=== PATIENT | male | born 1945 | race Caucasian/White ===

== ENCOUNTER 2016-11-09 23:18 | Inpatient (IN) | payer MEDICARE, OTHER ==
--- NOTE | ~2016-11-09 | EKG ---
PATIENT: JELANI ESTRADA UNIT #: [id number] Ventricular Rate: 88 BPM Atrial Rate: 88 BPM P-R Interval: 146 ms QRS Duration: 122 ms Q-T Interval: 394 ms QTC Calculation(Bezet): 476 ms P [place]: 80 degrees Calculated R [place]: -78 degrees Calculated T [place]: 28 degrees Diagnosis Line: Normal sinus rhythm Diagnosis Line: Possible Left atrial enlargement Diagnosis Line: Left axis deviation Diagnosis Line: Right bundle branch block Diagnosis Line: Abnormal ECG Diagnosis Line: When compared with ECG of 14-SEP-2010 06:17, Diagnosis Line: Vent. rate has increased BY 39 BPM Diagnosis Line: Right bundle branch block is now Present Diagnosis Line: Confirmed by SRAVAN DEE MD ([id number]) on 11/10/2016 Diagnosis Line: 10:46:18 PM INTERPRETING MD: LUIZ CLOUD
--- NOTE | ~2016-11-09 | MR18 ---
[facility] A Service of [facility] RADIOLOGY TEXT RESULTS PATIENT: JELANI ESTRADA LOCATION: [facility] : 44 UNIT #: [id number] AGE: [address]: Chad Otto MD SEX: M ORDER DR: [id number] [facility] [address] [facility]. [place], [place] [address] [id number] I MR#: [id number] Acc #: [id number] NAME: JELANI ESTRADA : 1945 SEX: M STUDY DATE/TIME: 11/11/2016 10:39 UNIT: A PCU ROOM: 310 STUDY DESCRIPTION: MR Brain Wo Contrast Attending Physician: Mickey Newsome M.D. Referring Physician: Primary Care Physician No Ordering Physician: Eugenio Johns M.D. Primary Care Physician: Primary Care Physician No MRI CENTER REPORT This report is preliminary unless electronic signature is present. EXAM Brain MR no contrast 11/11/2016 PROCEDURE Routine unenhanced brain MRI. HISTORY Confusion for [address] suggesting acute stroke. PROCEDURE Routine unenhanced brain MRI. FINDINGS In addition to advanced chronic small vessel ischemic change, there is a central MCA territory acute/subacute non hemorrhagic infarct. There is restricted diffusion T2 FLAIR hyperintensity gyral swelling but no hemorrhagic conversion. There is no midline shift. There is no hydrocephalus or extraaxial fluid collection. Normal flow voids are seen in the cerebral vessels. IMPRESSION Nonhemorrhagic acute/subacute right central MCA territory infarct with local sulcal effacement. Dictated by... Abner Rae M.D. THIS IS AN ELECTRONICALLY VERIFIED REPORT Abner Rae M.D. at 11/18/2016 10:44 AM GARY/sheba TD: 11/11/2016 12:39 [facility] A Service of [facility] RADIOLOGY TEXT RESULTS PATIENT: JELANI ESTRADA LOCATION: [facility] : 44 UNIT #: [id number] AGE: [address]: Chad Otto MD SEX: M ORDER DR: JOB #: [id number] MRI CENTER REPORT Page 1 of 1 COPY
--- NOTE | ~2016-11-09 | CT17 ---
[facility] A Service of [facility] RADIOLOGY TEXT RESULTS PATIENT: JELANI ESTRADA LOCATION: [facility] 310-01 : 44 UNIT #: [id number] AGE: [address]: Mickey Newsome MD SEX: M ORDER DR: [id number] [facility] [address] [facility]. [place], [place] [address] [id number] I MR#: [id number] Acc #: [id number] NAME: JELANI ESTRADA : 1945 SEX: M STUDY DATE/TIME: 11/10/2016 3:37 UNIT: [facility] ROOM: 69021 STUDY DESCRIPTION: CT Angio Head Attending Physician: Mickey Newsome M.D. Referring Physician: Primary Care Physician No Ordering Physician: Germán Banda M.D. Primary Care Physician: Primary Care Physician No MEDICAL IMAGING REPORT This report is preliminary unless electronic signature is present EXAM Head and neck CT angiogram with contrast, 11/10/2016 PROCEDURE Axial contrast enhanced head and neck CT angiogram with three dimensional reformats. This CT exam was performed with one or more of the following radiation dose reduction techniques: automatic exposure control, adjustment of mA and/or kV according to patient size, and iterative reconstruction. HISTORY Loss of balance, lethargy and confusion for 2 days. FINDINGS There is a normal arch branching pattern without proximal great vessel stenosis. Both vertebral arteries are patent throughout the neck and there is right vertebral dominance. Both contribute to the basilar artery which is normal in caliber. Both cervical common and internal and external carotid arteries are patent. There is plaque at the cervical carotid bifurcations with 0% right and 20% left ICA stenosis by NASCET criteria. The upper cervical ICAs are normally patent. The carotid siphons show irregularity and there is focal at least moderate stenosis in the left clinoid ICA. The anterior communicator is clearly patent. Neither posterior communicator is unequivocally demonstrated. There may be a tiny right posterior communicator, perhaps a tiny left posterior communicator but again neither is convincingly demonstrated. There is a small superiorly directly right MCA aneurysm at what appears to be an early insular branch origin. The aneurysm is about 3.0 mm in size. [facility] A Service of [facility] RADIOLOGY TEXT RESULTS PATIENT: JELANI ESTRADA LOCATION: [facility] 310-01 : 43 UNIT #: [id number] AGE: [address]: Mickey Newsome MD SEX: M ORDER DR: There is no other convincing intracranial aneurysm, but there is stenosis at the bifurcation of the right MCA trunk to what are probably M3 branches. No other intracranial flow limiting stenosis is seen. There is an area of what appears to be evolving central MCA territory acute infarct. The dural venous sinuses appear normally patent. There is no mass or abnormal enhancement. IMPRESSION 1. There is plaque at the carotid bifurcations with about 20% left and 0% right ICA stenosis by NASCET criteria. 2. 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 3. There is also a focal stenosis and probably completely occlusive thrombus at the primary M3 branch origin on the right. 4. No other intracranial aneurysm is seen but is also at least a moderate stenosis in the left clinoid ICA segment. 5. Maturing right central MCA territory infarct is demonstrated. No intracranial mass or abnormal enhancement and the dural venous sinuses are normal. 6. The cervical soft tissues are unremarkable. There are emphysematous changes in the lung apices. Dictated by... Abner Rae M.D. THIS IS AN ELECTRONICALLY VERIFIED REPORT Abner Rae M.D. at 11/11/2016 9:50 AM GARY/balbir TD: 11/10/2016 11:55 JOB #: [id number] MEDICAL IMAGING REPORT Page 1 of 1 COPY
--- NOTE | ~2016-11-09 | DS ---
Unit #: [id number] #: [id number] Patient: JELANI ESTRADA [id number] [address] [place], [place] [address] [id number] I MR#: [id number] NAME: JELANI ESTRADA ROOM: 310 Age: 71 Sex: M Admission Date: 11/10/2016 : 1945 Discharge Date: 11/15/2016 Attending Physician: Chad Otto M.D. Primary Care Physician: No Primary Care Physician DISCHARGE SUMMARY DISCHARGE DIAGNOSES 1. Acute to subacute cerebrovascular accident with dysarthria and dysphagia. Cerebrovascular accident location is right central middle cerebral artery territory infarct with local focal effacement. 2. Transient bacteremia due to the skin contaminate per infectious disease, was transiently treated with vancomycin. Transthoracic echocardiogram with no source of infective endocarditis. 3. Mechanical valve: We cannot confirm if patient does or does not take Coumadin; however, at this time patient will be discharged without Coumadin. 4. Alcohol abuse remotely: Patient has not drank in the past year or two per his son. 5. Vitamin B12 deficiency: Likely due to his years of alcohol consumption. 6. Essential hypertension. 7. Hyperlipidemia. 8. Generalized anxiety. 9. Chronic pain syndrome. 10. Chronic obstructive pulmonary disease with an acute exacerbation. 11. Acute hypoxic respiratory failure. CONSULTANTS 1. Dr. Johns of neurology. 2. Dr. Turcios of infectious disease. 3. Dr. Whyte had performed a DEBBY (transesophageal echocardiogram). PROCEDURES DEBBY on November 13, 2016: Impression - septal hypokinesis. No PFO. No ASD. Mechanical aortic valve. Thickened valve. No clot in left atrial appendage. No vegetation. Severe atherosclerotic with grade 4 atherosclerosis. DIAGNOSTIC STUDIES LABORATORY: Patient's labs today include BMP: Glucose 168, BUN 13, creatinine 0.8, sodium 138, potassium 3.8, chloride 108, CO2 of 24, calcium 8.1. Magnesium was not done. CBC with WBC of 6.1, RBC 4.49, hemoglobin 13.2, hematocrit 39.7, MCV 88.4, MCH 29.4, MCHC 33.1, RDW 13.3, platelets 157,000, MPV 8.8. IMAGING: Chest x-ray, November 09, 2016: Impression - no acute chest findings. CABG changes. Valve replacement changes. CT head without contrast, November 10, 2016: Impression - findings consistent with evolving right middle cerebral artery territory infarct Unit #: [id number] #: [id number] Patient: JELANI ESTRADA involving the right frontal and parietal lobe. No evidence of hemorrhagic transformation or midline shift. Chronic microvascular disease changes are present elsewhere within the deep white matter. Mild to moderate generalized parenchymal atrophy. CT angio of head and neck: Impression - there is a plaque in the carotid bifurcation with about 20% left and zero percent right ICA stenosis by NASCET criteria. Intracranially, there is a both a right M1 aneurysm superiorly directed about 3 mm in size at what appears to be the origin of an early small insular branch. There is also a focal stenosis and probably completely occlusive thrombus at the primary M3 branch origin on the right. No other intracranial aneurysm is seen but is also at least a moderate stenosis in the left clinoid ICA segment. Maturing right central MCA territory infarct is demonstrated. No intracranial mass or abnormal enhancement and the dural venous sinuses are normal. The cervical soft tissues are unremarkable. There are emphysematous changes in the lung apices. MRI of the brain without contrast on November 11, 2016: Impression - nonhemorrhagic acute to subacute right central MCA territory infarct with local focal effacement. A two-view chest x-ray on November 14, 2016: Impression - mild bibasilar atelectasis/infiltrate, left greater than right, early pneumonia not excluded in the appropriate clinical settings. MICROBIOLOGY: Blood culture has Staphylococcus coagulase negative x2. Urine culture has no growth. HOSPITAL COURSE The patient is a pleasant 71-year-old male with past medical history of remote severe alcoholism, essential hypertension, mechanical valve repair, coronary artery disease, hyperlipidemia, generalized anxiety, chronic pain who presents to the emergency department due to chest pain, confusion. Patient has had profound weakness as well as generalized dizziness for approximately seven days. He was disoriented. Had several cognitive episodes. He was unsure where he was, the time of the day, and to any persons. Therefore, he was brought to the emergency department for further evaluation. The patient does have a mechanical aortic valve and history of alcohol abuse. He is supposed to be on home Coumadin but cannot tell me a dose. When nursing called [facility], where he gets his prescriptions, they state that his home meds include: Xanax, oxycodone, Paxil, pravastatin but no anticoagulant was listed. (1) emergency department had concern for possibly a subacute MCA. Dr. Johns was consulted for stroke workup. He did have a 2D echo that revealed left ventricular size is normal. Left ventricular hypertrophy. Global ejection fraction was normal, predicted to be at 65%. No regional wall motion abnormalities. No diastolic filling pattern. Normal diastolic filling pattern with age. Normal right ventricular structure and function. Mechanical aortic valve prosthesis is in place, well seated. Blood culture was obtained with concern for altered mental status in patient with mechanical valve. It did result in 2/2 sets with Staphylococcus coag negative and patient was transiently treated with vancomycin. Infectious disease with Dr. Turcois was consulted who felt that it was likely skin contaminate. Therefore, no further antibiotics were needed at this time. For his complete CVA workup, speech therapy evaluated the patient and patient had failed bedside swallow study. Therefore, a video-assisted swallow study was performed, a modified Unit #: [id number] #: [id number] Patient: JELANI ESTRADA swallow study which thought that patient had overt signs of dysphagia. He also had food in his mouth which he did not swallow. It was recommended that patient have a slick diet with honey-thickened and be supervised during his meals. Spoken to the patient about this at extensive length that he would need one-on-one sitter and then he would benefit from going to a long-term assisted living facility to assist with that as he does have likely severe esophageal dysphagia due to his longstanding alcoholism and now worsened with his acute CVA. The patient tells me that he "does not want to go to old folks home." Therefore, I have also brought up the topic of having feeding through a PEG tube while patient gets assisted with speech therapy and that his symptoms may or may not improve over time. The patient again voiced that he would never ever want a PEG tube to be placed for feeding. I have spoken with both patient, Mr. Omari Estrada, as well as, his son, also Jelani Estrada. They both agreed that it was in the patient's best interest that he be discharged home with hospice as he would not want for any of these measures to be taken. Specifically with regard to patient's transient bacteremia, patient did have a 2D echo by Dr. Larsen on November 13, 2016, and noted some septal hypokinesis but no PFO, no ASD, mechanical aortic valve with thickened valve but no clot in left atrial appendage. No vegetation. Severe atherosclerotic with grade 4 atheroma. At this time, since patient's main focus is to go home so that he could mainly see his dog and eat whatever he would like, patient will be discharged there. DISCHARGE MEDICATIONS 1. Paxil 40 mg orally daily. 2. Xanax 1 mg orally twice daily. 3. Lipitor 40 mg orally at bedtime. 4. Aspirin 81 mg orally daily. 5. Oxycodone which was not continued, instead [place] 5/325 one tablet every eight hours as needed for dipiqvqs-bu-ncaxfe pain. 6. Vitamin B12 at 1000 mcg orally daily. 7. Prednisone 40 mg orally for the next four days. 8. Combivent two puffs inhaled four times daily. ACTIVITY Nonrestricted. DIET Nonrestricted. This dictation took 45 minutes including patient education to patient and his son and to coordinate care with project planner as well as hospice team. Dictated by... Lam Neely PA-C for Trevor Newton/stephanie TD: 11/16/2016 15:09 JOB #: [id number] Unit #: [id number] #: [id number] Patient: JELANI ESTRADA DISCHARGE SUMMARY Page 1 of 1 X X DISCHARGE SUMMARY
--- NOTE | ~2016-11-09 | CR72 ---
[facility] A Service of [facility] RADIOLOGY TEXT RESULTS PATIENT: JELANI ESTRADA LOCATION: [facility] : 43 UNIT #: [id number] AGE: [address]: Mickey Newsome MD SEX: M ORDER DR: [id number] [id number] [place], [place] [address] [id number] I MR#: [id number] Acc #: [id number] NAME: JELANI ESTRADA : 1945 SEX: M STUDY DATE/TIME: 11/09/2016 23:19 UNIT: [facility] ROOM: 57601 STUDY DESCRIPTION: CR Chest Single View Portable Attending Physician: Mickey Newsome M.D. Referring Physician: No Primary Care Physician Ordering Physician: Germán Banda M.D. Primary Care Physician: No Primary Care Physician MEDICAL IMAGING REPORT This report is preliminary unless electronic signature is present EXAM AP portable chest DATE 11/09/2016 at 23:19 HISTORY Chest pain for mdi-rt-gtjnu days. Difficulty breathing. COMPARISON AP portable chest 09/13/2010. FINDINGS No acute airspace disease. Heart size is within normal limits. CABG changes are present. Benign calcified granuloma in the left hilum. No pleural effusion, pneumothorax or acute osseous abnormalities are identified. IMPRESSION 1. No acute chest findings. 2. CABG changes. Valve replacement changes. Dictated by... Christie Charles M.D. THIS IS AN ELECTRONICALLY VERIFIED REPORT Christie Charles M.D. at 11/10/2016 4:20 AM LLJack/shara TD: 11/10/2016 04:14 JOB #: [id number] MEDICAL IMAGING REPORT [facility] A Service [facility] RADIOLOGY TEXT RESULTS PATIENT: JELANI ESTRADA LOCATION: [facility] : 44 UNIT #: [id number] AGE: [address]: Mickey Newsome MD SEX: M ORDER DR: Page 1 of 1 COPY
--- NOTE | ~2016-11-09 | CR63 ---
[facility] A Service of [facility] RADIOLOGY TEXT RESULTS PATIENT: JELANI ESTRADA LOCATION: [facility] 310- : 44 UNIT #: [id number] AGE: [address]: Chad Otto MD SEX: M ORDER DR: [id number] [facility] [address]. [place], [place] [address] [id number] I MR#: [id number] Acc #: [id number] NAME: JELANI ESTRADA : 1945 SEX: M STUDY DATE/TIME: 11/14/2016 17:55 [facility] ROOM: [facility] STUDY DESCRIPTION: CR Chest 2 View Attending Physician: Chad Otto M.D. Ordering Physician: [facility] MEDICAL IMAGING REPORT This report is preliminary unless electronic signature is present EXAM Two-view chest 11/14/2016 HISTORY 71-year-old male with shortness of air and cough for 1 week. Essential hypertension. COMPARISON STUDIES Chest 11/09/2016. FINDINGS 2 views of the chest demonstrate bibasilar atelectasis/infiltrate, left greater than right. No significant pleural effusions. No pneumothorax. Heart size and mediastinum are stable. Pulmonary vasculature unremarkable. Median sternotomy wires. Cardiac valve replacement. IMPRESSION Mild bibasilar atelectasis/infiltrate, left greater than right. Early pneumonia not excluded in the appropriate clinical setting. Dictated by... Neville Newberry M.D. THIS IS AN ELECTRONICALLY VERIFIED REPORT Neville Newberry M.D. at 11/15/2016 4:27 PM HODAN/rasheed TD: 11/14/2016 23:02 JOB #: [id number] MEDICAL IMAGING REPORT Page 1 of 1 COPY
--- NOTE | ~2016-11-09 | CO ---
Unit #: [id number] #: [id number] Patient: JELANI ESTRADA [id number] [address] [address] [id number] I MR#: [id number] NAME: JELANI ESTRADA ROOM: 310 Age: 71 Sex: M Admission Date: 11/10/2016 : 1945 Attending Physician: Chad Otto M.D. Primary Care Physician: Юлия Primary Care Physician Requesting Physician: Chad Otto M.D. Consultation Date: 11/11/2016 CONSULTATION REPORT REASON FOR CONSULTATION Positive blood cultures. HISTORY OF PRESENT ILLNESS This 71-year-old gentleman who is currently somewhat confused and disoriented was initially hospitalized for what appeared to be CVA with left-sided weakness. Subsequently, blood cultures showed coag-negative staff for which vancomycin was started. ID was consulted for further evaluation. Patient does not have any fever, chills, or any signs of systemic sepsis. He does, however, have a prosthetic aortic valve and his combination of stroke, positive blood culture, and AVR may be concerning for endocarditis. However, patient does not have any fever, chills, hypertension, or any signs of systemic sepsis. PAST MEDICAL HISTORY History of alcohol abuse, coronary artery disease, coronary artery bypass grafting, aortic valve replacement, diabetes, hypertension, COPD, depression, tobacco abuse, appendectomy, and chronic pain. DRUG ALLERGIES None. MEDICATIONS Current medications were reviewed. He is on: 1. Lipitor. 2. Oxycodone. 3. Paxil. 4. Aspirin. 5. Cyanocobalamin. 6. Zofran. 7. NovoLog. 8. Xanax. 9. Vancomycin. PERSONAL HISTORY He lives at home. No history of IV drug use. There is a history of alcohol and tobacco use. FAMILY HISTORY Unknown. SYSTEMIC REVIEW Patient is somewhat confused and not a very good historian. Chart was reviewed and discussions were held with nursing staff. Pertinent findings Unit #: [id number] #: [id number] Patient: JELANI ESTRADA are listed. There is no obvious fever, hypotension, or signs of systemic sepsis. There is no cough or headache. He had confusion and left-sided weakness. There is no abdominal pain or dysuria. PHYSICAL EXAMINATION GENERAL APPEARANCE: Reveals a middle age male who looks older than his stated age. He is awake and somewhat confused and a little bit disoriented. He is not in any distress. VITAL SIGNS: Temperature 98.9 and no fever documented during this admission, heart rate 73, respirations 18, and blood pressure is 150/90. NECK: Supple. HEENT: Oral hygiene is poor. There is left-sided facial weakness. EXTREMITIES: Possible left-sided weakness of the upper extremity, as well. LUNGS: Clear to percussion and auscultation. HEART: Sounds are normal. ABDOMEN: Obese, soft, and nontender. There is no rebound or guarding. Bowel sounds are normal. NEUROLOGICAL: He is somewhat confused and a little bit disoriented with left-sided facial and left upper extremity weakness. There is no neck stiffness. DIAGNOSTIC STUDIES LABORATORY: Blood culture is positive for coag-negative Staph. Both sets were drawn at exactly the same time. He does not have any indwelling major PICC line or central line. BUN is 23, creatinine is 1.3, and electrolytes normal. Lactic acid 1.2. White count is 6, hemoglobin is 14.1, and platelets 189. Urinalysis is negative for UTI. IMAGING: Chest x-ray had no obvious infiltrate. IMPRESSION Coag-negative Staph. bacteremia. Two sets were drawn at identical time and place. This very well could be skin contaminant; however, given the aortic valve replacement and stroke, endocarditis and embolization need to be excluded. RECOMMENDATIONS We will continue with vancomycin empirically. I will ask cardiology to do a DEBBY to look at the aortic valve more closely. The plan was discussed with the primary team and neurology who both agree. Further recommendations will follow. Dictated by... Trevor Long/eliot TD: 11/15/2016 11:47 JOB #: [id number] Unit #: [id number] #: [id number] Patient: JELANI ESTRADA CONSULTATION REPORT Page 1 of 1 X Brett Turcios MD CONSULTATION REPORT
--- NOTE | ~2016-11-09 | FU ---
[facility] Nutrition Therapy DATE: 11/15/16 Patient: JEALNI ESTRADA Physician: ILANA Address: [address] [facility] Room/Bed: [address] [place] [address], Zip: [place] [address] Admit Date: 11/10/16 Date of : 44 Height: 5 3 Weight: 139 63.5 NUTRITION MONITORING/FOLLOW-UP: Reason: Call from RN (Lawrence) to provide education on slick diet before discharge today Current diet order: [place] + HTL (per [facility]) Assessment: Previous RD assessment and patient's chart reviewed. Renetta from [facility] is already gone for the day, so RD provided the education. Gave family member in room both verbal and written diet education on slick diet with HTL, also gave meal ideas, however the family member states MD instructed him to give the patient whatever he wants to eat. RD informed family member of aspiration/choking risk, however if regular texture solids/liquids are what the patient and family wants then that is their decision. Please consult RD with any further nutritional needs prior to discharge. Respectfully, Kiana Ortiz, GUERLINE, LD Food and Nutritional Services [facility] cc: client file
--- NOTE | ~2016-11-09 | CT71 ---
[facility] A Service of [facility] RADIOLOGY TEXT RESULTS PATIENT: JELANI ESTRADA LOCATION: [facility] 310-01 : 44 UNIT #: [id number] AGE: [address]: Mickey Newsome MD SEX: M ORDER DR: [id number] [place] [id number] [facility]. [place], [place] [address] [id number] MR#: [id number] Acc #: [id number] NAME: JELANI ESTRADA : 1945 SEX: M STUDY DATE/TIME: 11/10/2016 2:41 UNIT: CEDOF ROOM: 52251 STUDY DESCRIPTION: CT Head Wo Contrast Attending Physician: Mickey Newsome M.D. Referring Physician: No Primary Care Physician Ordering Physician: Germán Banda M.D. Primary Care Physician: No Primary Care Physician MEDICAL IMAGING REPORT This report is preliminary unless electronic signature is present EXAMINATION Noncontrast CT head DATE 11/10/2016 HISTORY 71-year-old male. Chest pain for 2 days. Lethargic, confusion. Off balance. Emphysema. Hypertension. COMPARISON None. TECHNIQUE This CT exam was performed with one or more of the following radiation dose reduction techniques: automatic exposure control, adjustment of mA and/or kV according to patient size, and iterative reconstruction. FINDINGS There is abnormal hypodensity within the right frontal-parietal lobe involving the cortical vasquez matter and subcortical white matter, thought to represent an evolving right MCA territory infarct. No hemorrhagic transformation is seen. Scattered hypodensities are seen within the deep white matter consistent with moderate chronic microvascular disease, greatest in the right internal and external capsules. Chronic lacunar infarcts are seen within but thought to be present within the bilateral basal ganglia. Ventricular configuration is within normal limits. There is cydg-ln-rjhvgzln parenchymal atrophy. Paranasal sinuses and mastoid air cells are clear and the calvarium is within normal limits. IMPRESSION 1. Findings consistent with evolving right middle cerebral artery territory infarct involving the right frontal and parietal lobe. No [facility] A Service [facility] RADIOLOGY TEXT RESULTS PATIENT: JELANI ESTRADA LOCATION: A 310-01 : 44 UNIT #: [id number] AGE: [address]: Mickey Newsome MD SEX: M ORDER DR: evidence of hemorrhagic transformation or midline shift. 2. Chronic microvascular disease changes are present elsewhere within the deep white matter. 3. Mild to moderate generalized parenchymal atrophy. Dictated by... Christie Charles M.D. THIS IS AN ELECTRONICALLY VERIFIED REPORT Christie Charles M.D. at 11/10/2016 10:02 PM Jack/geronimo TD: 11/10/2016 08:43 JOB #: [id number] MEDICAL IMAGING REPORT Page 1 of 1 COPY
--- NOTE | ~2016-11-09 | CT23 ---
[facility] A Service of [facility] RADIOLOGY TEXT RESULTS PATIENT: JELANI ESTRADA LOCATION: [facility] 310-01 : 44 UNIT #: [id number] AGE: [address]: Mickey Newsome MD SEX: M ORDER DR: [id number] [address] [address] [id number] I MR#: [id number] Acc #: [id number] NAME: JELANI ESTRADA : 1945 SEX: M STUDY DATE/TIME: 11/10/2016 3:37 UNIT: [employer] ROOM: [facility] STUDY DESCRIPTION: CT Angio Neck Attending Physician: Mickey Newsome M.D. Referring Physician: Primary Care Physician No Ordering Physician: Germán aBnda M.D. Primary Care Physician: Primary Care Physician No MEDICAL IMAGING REPORT This report is preliminary unless electronic signature is present EXAM CT angiogram of the neck HISTORY FINDINGS Please see CT angiogram of the head for results. Dictated by... Abner Rae M.D. THIS IS AN ELECTRONICALLY VERIFIED REPORT Abner Rae M.D. at 11/11/2016 9:50 AM Janell TD: 11/10/2016 11:56 JOB #: [id number] MEDICAL IMAGING REPORT Page 1 of 1 COPY
--- NOTE | ~2016-11-09 | CO ---
Unit #: [id number] #: [id number] Patient: JELANI ESTRADA [id number] [facility] [address] [facility]. [place], [place] [address] [id number] MR#: [id number] NAME: JELANI ESTRADA ROOM: 310 Age: 71 Sex: M Admission Date: 11/10/2016 : 1945 Attending Physician: Mickey Newsome M.D. CONSULTATION REPORT PRIMARY CARE PHYSICIAN Not known. REASON FOR CONSULTATION Abnormal CT, possible stroke, confusion. PATIENT IDENTIFICATION This is a 71-year-old, right-handed, white male, who is evaluated in room ER 14 at [facility]. SOURCE OF INFORMATION Some from the patient and some from previous records. He has been here in the past. His last visit was in 09/2010. PROBLEM LIST At that time; 1. Alcohol withdrawal. 2. Coronary artery disease, status post coronary artery bypass grafting. 3. Status post aortic valve replacement with [facility] [place] valve. 4. Type 2 diabetes mellitus. 5. Hypertension. 6. COPD. 7. Depression. 8. Tobacco abuse. 9. Appendectomy. 10. Chronic pain. Also benzodiazepine and pain medication, may be abuse and may be dependence. 11. INR is 2.4. HISTORY OF PRESENT ILLNESS This is a 71-year-old gentleman, who actually presented yesterday around 10:26 p.m. His presentation was chest pain and confusion. He was evaluated and found to have abnormal CT and also CTA. The CT showed possibility of indeterminate age infarct in the right MCA territory and possible one of the branches on the MCA could be occluded there. The issue is that we do not know when this happened. He has a little bit of left-sided facial weakness but beyond that, he came for confusion. His INR is 2.4. Look at his history and apparently some friends came to visit him and told the staff that his biggest problem is medication use that he has not been prescribed. When asked the patient just as a question, he says that he buys drugs from the street and he is referring to Xanax and oxycodone, but Unit #: [id number] #: [id number] Patient: JELANI ESTRADA he does not do it for pleasure or euphoria. He does it, because he needs for chronic pain and he really did not tell me that he had left-sided weakness. He is a smoker, and his INR is 2.4, but when I looked at his medication, Coumadin is not listed, so we really have incomplete information. He is quite confused. He thinks this is December 10. No falls or injuries known to me. No head injury or trauma or seizure. No migraine. PAST MEDICAL HISTORY As discussed above. PAST SURGICAL HISTORY As discussed above. ALLERGIES None known to me. MEDICATIONS Home medications are not known, but apparently he is on Lipitor 10 mg, oxycodone 15 mg, Paxil 40 mg, aspirin 325 mg that was probably started here, also on Xanax 1 mg. Why was his INR elevated, I am looking at the previous records. He was on Coumadin at one time. FAMILY HISTORY Heart disease. SOCIAL HISTORY Tobacco use about two packs a day and has smoked for almost 50 years now and drinks a beer on occasion, but he does use Xanax and pain medication. Previously, he was known to be a heavy alcohol user. REVIEW OF SYSTEMS Really could not be obtained, because of his confusional state. PHYSICAL EXAMINATION VITAL SIGNS: Temperature 98.5, pulse 72, respirations are 22, blood pressure 182/92. NEUROLOGIC: The patient is awake. He is alert. He says that he is in one of the [facility] facility. He thinks this is December 10. Cranial nerve examination demonstrated full hernandes of vision to confrontation. Eye movements are conjugate. I did not see any ptosis. I did not see any nystagmus. Extraocular movements are intact. Sensation on the face and scalp are normal. Strength of muscles of facial expression normal. Hearing seemed to be intact bilaterally. Tongue was midline. I could not visualize his oropharynx or uvula. Head turning was spontaneous. Motor examination demonstrated normal bulk, tone. His strength was 4+/5 on the left side and 5- on the right side. This may be a chronic issue. Sensory examination intact for soft touch and pain sensation. No Unit #: [id number] #: [id number] Patient: JELANI ESTRADA was seen. Romberg was not evaluated. Gait examination was deferred. I could not get any reflexes. Toes are mute. Coordination was slow. DIAGNOSTIC STUDIES LABORATORY RESULTS: Reviewed. IMPRESSION This is a very interesting 71-year-old gentleman, who presented with confusion. The question is there is a stroke, but what is the time course of this stroke. Also, he has a valve and he is supposed to be on Coumadin, but I do not see it on his medication, so I will do an MRI of the brain if possible. I will do other stroke workup, but the question is this is new stroke or this is drug related issue, which cannot be totally ignored either. I will await for the primary to evaluate him. I will also request them to consider this as anticoagulation issue and we will go from there. Please see my orders and I will follow up and see how things go. This gentleman wants to leave AMA and he has been requested not to do that. We will see how things automatic glove turner and former. Call me for any other questions, issues, or concerns. He is obviously not a tPA or interventional candidate as his duration was totally different. Dictated by... Trevor Bermudez/billy TD: 11/11/2016 05:06 JOB #: [id number] CONSULTATION REPORT Page 1 of 1 X Eugenio Johns MD X CONSULTATION REPORT
--- NOTE | ~2016-11-09 | HP ---
Unit #: [id number] #: [id number] Patient: JELANI ESTRADA [id number] [address] [place], [place] [address] [id number] MR#: [id number] NAME: JELANI ESTRADA ROOM: 310 Age: 71 Sex: M Admission Date: 11/10/2016 : 1945 Attending Physician: Mickey Newsome M.D. HISTORY AND PHYSICAL DATE OF EVALUATION November 10, 2016 REASON FOR ADMISSION Chest pain, confusion, possible underlying subacute CVA. HISTORY OF PRESENT ILLNESS Patient is a 71-year-old male. Currently, there are no family members present at bedside, and this history, as well as review of systems, is very limited secondary to him being a very poor historian, but from what I can gather through chart review, as well as discussion with the patient, he has had profound weakness, as well as dizziness for approximately seven days. He was disoriented. He had several coughing episodes. He was unsure to where his time, place, or person was; therefore, he was brought into the hospital for further evaluation. Previous chart review reveals that he has a mechanical aortic valve, as well as a prior history of alcohol abuse. It does not appear that while at home he is currently on Coumadin. His home medications which he routinely fills at [facility] include Xanax, oxycodone, and Paxil, as well as Pravastatin, but again, it does not appear that he is on chronic anticoagulation. He presented and through ER course his CT head does raise the possibility of a subacute MCA. Dr. Johns has already seen and evaluated the patient in regards to possible stroke workup. Patient has been scheduled for MRI brain, as well as 2D echo, and initial workup has already been started. PAST MEDICAL HISTORY 1. Hypertension. 2. I believe mechanical valve. 3. Hyperlipidemia. 4. Generalized anxiety. 5. Chronic pain syndrome. PAST SURGICAL HISTORY 1. Appendectomy. 2. Coronary artery bypass grafting. 3. Valve surgery. HOME MEDICATIONS 1. Xanax. 2. Oxycodone. 3. Paxil. Unit #: [id number] #: [id number] Patient: JELANI ESTRADA 4. Pravastatin. ALLERGIES No known drug allergies. FAMILY HISTORY Reviewed and limited secondary to patient's current condition. SOCIAL HISTORY Per chart review, it appears that he has a history of alcohol abuse. He smokes approximately two packs of cigarettes on a daily basis. I am not sure about illicit drug use. REVIEW OF SYSTEMS Limited again secondary to patient being a very poor historian and the lack of family members present at bedside. PHYSICAL EXAMINATION VITAL SIGNS: Temperature 97.5, pulse 80, respiratory rate 26, and blood pressure 166/79. GENERAL APPEARANCE: Patient is a very frail, 71-year-old female, poor historian. HEAD: Atraumatic. EARS: Tympanic membranes do not reveal any erythema or injection. NECK: Supple. No JVD. No carotid bruits. CARDIOVASCULAR: S1 and S2. Mechanical click heart. Regular rate and rhythm. RESPIRATORY: Coarse breath sounds are noted bilaterally. GASTROINTESTINAL/ABDOMEN: Nontender and nondistended. LOWER EXTREMITIES: No evidence of any lower extremity edema. NEUROLOGIC: Alert and oriented x1. DIAGNOSTIC STUDIES INITIAL LABORATORY: Lactic acid level of 1.9. BNP 85. BMP shows a creatinine of 1.3 and GFR of 54. Electrolytes within normal limits. LFTs normal. Alcohol level less than 0.5. INITIAL IMAGING: CT head without contrast is consistent with evolving right middle cerebral artery territory infarct as mentioned above, though hemorrhagic transformation is noted. CT angiogram head and neck also performed and is essentially normal. There was focal stenosis which was noted and probable completely occlusive thrombus noted at the primary M3 branch on the right side. INITIAL ADMISSION DIAGNOSES 1. Acute versus subacute middle cerebral artery stroke. 2. Weakness. 3. Acute confusional state/disorientation. 4. Prior history of mechanical heart valve, not on chronic anticoagulation, reason unclear. 5. Frequent falls at home. 6. Atypical chest pain. 7. Chronic pain syndrome. 8. Generalized anxiety disorder. 9. Anxiety/depression. 10. Prior history of hyperlipidemia. PLAN Unit #: [id number] #: [id number] Patient: JELANI ESTRADA Admission. Stroke protocol has already been initiated. Neurology consultation has already been obtained. A 2D echo is currently pending. We will check routine laboratory studies. I will also try to have a discussion with patient's family members and try to gather as much history in regards to his past medical history as possible. Further hospital course to follow pending evaluation from Neurology, as well as laboratory studies and further imaging including MRI as detailed above. Dictated by Trevor Newton/rex TD: 11/10/2016 18:44 JOB #: [id number] HISTORY AND PHYSICAL Page 1 of 1 X Chad Otto MD X HISTORY AND PHYSICAL
--- NOTE | ~2016-11-09 | A ---
[facility] Nutrition Therapy DATE: 11/11/16 Patient: JELANI ESTRADA Physician: MORCAR Address: [address] [place] [address] Room/Bed: [address] [place] [address], Zip: [place] [address] Admit Date: 11/10/16 Date of : [birth year] Height: 5 3 Weight: 134 61 NUTRITIONAL ASSESSMENT: REASON: CONSULT/ Stroke protocol 71 yo male admitted for possible stroke, chest pain, confusion PMH: CAD, CABG, CAD, EtOH abuse, mechanical aortic valve, HTN, HLD, DM, COPD, anxiety, appendectomy Anthropometrics: Ht: 5'9" (previous admission ht) Wt: 61 kg BMI: 19.9 IBW: 72.7 kg, 84% IBW Labs: Accuchecks 82-93 Meds: Vitamin B12, lipitor, zofran, novolog, coumadin, protonix, KCl I/O & Bowel function: 1464/253, last BM 11/11 Skin Integrity: no breakdown noted, no edema noted Diet: Heart healthy/ mechanical soft/ NDD2 with nectar thick liquids Assessment: Chart reviewed, events noted. Pt admitted for possible stroke with stroke protocol initiated. Nutritionally, the pt's diet has been advanced per HUMAN SERVICES PROGRAM SPECIALIST recommendations as noted above. Dysphagia noted by HUMAN SERVICES PROGRAM SPECIALIST. RD spoke with the pt at bedside. Pt reports inconsistent PO intake at home, and fair intake since he has been at [facility]. Pt reportedly usually consumes 1-2 meals per day at home, and denies any recent weight loss. RD discussed the importance of a heart healthy diet and adequate nutritional intake. Pt is agreeable to nutritional supplements. RD will order. Dx: Potential for inadequate nutritional intake RT clinical condition, dysphagia AEB HUMAN SERVICES PROGRAM SPECIALIST evaluation, altered consistency diet order. Intervention: 1. Advance diet per HUMAN SERVICES PROGRAM SPECIALIST 2. Magic Cup BID 3. TwoCal once daily Monitoring, Evaluation and Goals: 1. Oral intake; tolerate >50-75% of meals and supplements, diet per HUMAN SERVICES PROGRAM SPECIALIST 2. Improve labs; HDL 3. Weight; preserve lean body mass, prevent unintentional weight loss Recommendations: [facility] Nutrition Therapy DATE: 11/11/16 Patient: JELANI ESTRADA Physician: MORCAR Address: [address] [place] [address] Room/Bed: [address] [place] [address], Zip: [place] [address] Admit Date: 11/10/16 Date of : [birth year] Height: 5 3 Weight: 134 61 1. Continue to advance diet per HUMAN SERVICES PROGRAM SPECIALIST recommendations + heart healthy restriction. 2. Magic Cup vanilla + TwoCal once daily for supplemental nutrition. Pt is at mild nutritional risk. RD will continue to follow. Respectfully, JERRI ONEAL RD, LD Food and Nutritional Services [facility] cc: client file
[~2016-11-09 23:18] MED LIST: ALPRAZOLAM PO; ALPRAZOLAM1 MG PO; ASPIRIN PO; ATENOLOL PO; ATENOLOL25 MG PO; BACTRIM DS TABL1 TA1 PO; BLOOD PRESSURE; CELEXA PO; CHOLESTEROL; CLEOCIN HCL300 M1 PO; COUMADIN; COUMADIN PO; COUMADIN2.5 MG PO; COUMADIN5 MG PO; CRESTOR PO; DEPRESSION; ENDOCET 10-3251 TAB PO; LEVAQUIN PO; LIBRIUM25 MG PO; LIPITOR PO; LORCET 10/650 T1 TAB PO; LORTAB 10/500 T1 TAB PO; MS CONTIN PO; OXYCONTIN PO; PATIENT'S PHARMACY; PAXIL PO; RITE-AID PHARMACY; VITAMIN D1000 UNI1 PO
[2016-11-09 23:32] LABS: BASOPHIL# 0.1 X10e3 (0-0.3); BASOPHIL% 0.9 % (0-2.5); EOSINOPHIL% 0.1 % (0.0-7.0); HEMOGLOBIN 15.9 gm/dL (13.0-16.0); LYMPHOCYTE# 0.5 X10e3 (1.0-3.5); LYMPHOCYTE% 6.5 % (17.0-45.0); MEAN CELL VOLUME 90.1 FL (83-96); MEAN CORPUSCULAR HEMOGLOBIN 29.9 PG (28-34); MEAN CORPUSCULAR HGB CONC 33.1 g/dL (30-36); MEAN PLATELET VOLUME 8.5 FL (6.5-11.5); MONOCYTE# 0.5 X10e3 (0-1.0); MONOCYTE% 6.5 % (3.0-12.0); NEUTROPHIL# 6.8 X10e3 (1.5-7.1); PLATELET COUNT 185 X10e3 (140-420); RED BLOOD COUNT 5.32 X10e (3.90-5.60); RED CELL DISTRIBUTION WIDTH 12.7 % (11.0-15.5)
[2016-11-09 23:35] LABS: DIFF IND NO
[2016-11-09 23:38] LABS: POC - CKMB 1.3 ng/mL (0.0-7.9); POC - TROPONIN <0.05 ng/mL (<=0.05)
[2016-11-09 23:46] LABS: INR 2.4; PROTHROMBIN TIME (PATIENT) 25.8 SECONDS (9.6-11.5)
[2016-11-09 23:56] LABS: ALBUMIN SERUM 4.4 g/dL (3.5-5.0); ALKALINE PHOSPHATASE 91 U/L (32-92); ALT (SGPT) 19 U/L (10-40); AST (SGOT) 26 U/L (10-42); BILIRUBIN, DIRECT 0.2 mg/dL (0.0-0.2); BILIRUBIN,INDIRECT 0.9 mg/dL (0.0-0.9); BILIRUBIN,TOTAL 1.1 mg/dL (0.2-2.0); BLOOD UREA NITROGEN 20 mg/dL (9-23); BUN/CREATININE RATIO 15.38; CALCIUM SERUM 9.4 mg/dL (8.4-10.2); CARBON DIOXIDE 25 mmol/L (22-31); CHLORIDE 98 mmol/L (100-111); CREATININE SERUM 1.3 mg/dL (0.6-1.4); GLOM FILT RATE Estimated 54.5 mL/min (>60); GLUCOSE FASTING 116 mg/dL (70-110); POTASSIUM 4.5 mmol/L (3.5-5.1); PROTEIN TOTAL SERUM 8.8 g/dL (6.0-8.3); SODIUM 137 mmol/L (135-145)
[2016-11-10] LABS: ALCOHOL BLOOD <5 mg/dL (0)
[2016-11-10 01:28] LABS: POC - CKMB <1.0 ng/mL (0.0-7.9); POC - TROPONIN <0.05 ng/mL (<=0.05)
[2016-11-10] MEDS ORDERED: XANAX1 MG PO (10:11)
[2016-11-10] MEDS ORDERED: PAROXETINE HCL40 M1 PO (10:12)
[2016-11-10] MEDS ORDERED: PRAVASTATIN SOD40 MG PO (10:12)
[2016-11-10] MEDS ORDERED: OXYCODONE15 M1 PO (10:12)
[2016-11-10 15:50] LABS: CHOLESTEROL 132 mg/dL (0-200); HDL CHOLESTEROL 28 mg/dL (29-75); LDL CHOLESTEROL 87 mg/dL (-130); LDL/HDL RATIO 3 RATIO (0-4); TRIGLYCERIDES 85 mg/dL (10-160)
[2016-11-11 05:21] LABS: HEMATOCRIT 42.9 % (38.0-50.0); HEMOGLOBIN 14.1 gm/dL (13.0-16.0); MEAN CELL VOLUME 91.2 FL (83-96); MEAN CORPUSCULAR HGB CONC 32.9 g/dL (30-36); MEAN PLATELET VOLUME 8.7 FL (6.5-11.5); RED BLOOD COUNT 4.71 X10e (3.90-5.60)
[2016-11-11 05:38] LABS: INR 2.8; PROTHROMBIN TIME (PATIENT) 31.1 SECONDS (9.6-11.5)
[2016-11-11 06:17] LABS: URINE SOURCE CLEAN CATCH
[2016-11-11 06:26] LABS: URINE APPEARANCE CLEAR; URINE BILIRUBIN NEG (NEG); URINE BLOOD NEG (NEG); URINE COLOR YELLOW; URINE GLUCOSE NEG (NEG); URINE KETONE TRACE (NEG); URINE LEUKOCYTE ESTERASE NEG (NEG); URINE NITRATE NEG (NEG); URINE PROTEIN NEG (NEG); URINE SPECIFIC GRAVITY 1.047 (1.003-1.035)
[2016-11-11 06:42] LABS: AMPHETAMINE NEG (NEG); BARBITURATES NEG (NEG); BENZODIAZEPINES POS (NEG); COCAINE NEG (NEG); MARIJUANA NEG (NEG); OPIATES NEG (NEG); TRICYCLIC ANTIDEPRESSANTS NEG (NEG); U METHADONE NEG (NEG)
[2016-11-11 07:05] LABS: BUN/CREATININE RATIO 14.44; CALCIUM SERUM 8.4 mg/dL (8.4-10.2); CREATININE SERUM 0.9 mg/dL (0.6-1.4); POTASSIUM 3.8 mmol/L (3.5-5.1)
[2016-11-12 05:16] LABS: HEMATOCRIT 38.5 % (38.0-50.0); HEMOGLOBIN 12.5 gm/dL (13.0-16.0); MEAN CELL VOLUME 90.2 FL (83-96); MEAN CORPUSCULAR HEMOGLOBIN 29.4 PG (28-34); MEAN CORPUSCULAR HGB CONC 32.6 g/dL (30-36); MEAN PLATELET VOLUME 8.8 FL (6.5-11.5); RED BLOOD COUNT 4.27 X10e (3.90-5.60); RED CELL DISTRIBUTION WIDTH 13.3 % (11.0-15.5)
[2016-11-12 05:38] LABS: INR 4.5; PROTHROMBIN TIME (PATIENT) 49.8 SECONDS (9.6-11.5)
[2016-11-12 06:37] LABS: CALCIUM SERUM 8.1 mg/dL (8.4-10.2); CREATININE SERUM 0.9 mg/dL (0.6-1.4); POTASSIUM 4.3 mmol/L (3.5-5.1)
[2016-11-13 06:08] LABS: HEMATOCRIT 37.6 % (38.0-50.0); HEMOGLOBIN 12.5 gm/dL (13.0-16.0); MEAN CELL VOLUME 89.3 FL (83-96); MEAN CORPUSCULAR HEMOGLOBIN 29.8 PG (28-34); MEAN CORPUSCULAR HGB CONC 33.4 g/dL (30-36); MEAN PLATELET VOLUME 8.6 FL (6.5-11.5); RED BLOOD COUNT 4.21 X10e (3.90-5.60); RED CELL DISTRIBUTION WIDTH 12.8 % (11.0-15.5)
[2016-11-13 06:14] LABS: WHITE BLOOD COUNT 10.4 X10e3 (4.0-10.5)
[2016-11-13 06:23] LABS: INR 3.7; PROTHROMBIN TIME (PATIENT) 41.2 SECONDS (9.6-11.5)
[2016-11-13 06:42] LABS: BUN/CREATININE RATIO 12.22; CALCIUM SERUM 7.8 mg/dL (8.4-10.2); CREATININE SERUM 0.9 mg/dL (0.6-1.4); POTASSIUM 3.8 mmol/L (3.5-5.1)
[2016-11-14 06:17] LABS: HEMATOCRIT 37.9 % (38.0-50.0); HEMOGLOBIN 12.5 gm/dL (13.0-16.0); MEAN CORPUSCULAR HEMOGLOBIN 29.6 PG (28-34); MEAN CORPUSCULAR HGB CONC 32.9 g/dL (30-36); MEAN PLATELET VOLUME 8.7 FL (6.5-11.5); RED BLOOD COUNT 4.21 X10e (3.90-5.60); RED CELL DISTRIBUTION WIDTH 13.1 % (11.0-15.5); WHITE BLOOD COUNT 10.3 X10e3 (4.0-10.5)
[2016-11-14 06:30] LABS: INR 3.2; PROTHROMBIN TIME (PATIENT) 34.8 SECONDS (9.6-11.5)
[2016-11-14 07:23] LABS: BUN/CREATININE RATIO 13.33; CALCIUM SERUM 8.2 mg/dL (8.4-10.2); CREATININE SERUM 0.9 mg/dL (0.6-1.4); POTASSIUM 3.7 mmol/L (3.5-5.1)
[2016-11-15 02:40] LABS: HEMATOCRIT 39.7 % (38.0-50.0); HEMOGLOBIN 13.2 gm/dL (13.0-16.0); MEAN CELL VOLUME 88.4 FL (83-96); MEAN CORPUSCULAR HEMOGLOBIN 29.4 PG (28-34); MEAN CORPUSCULAR HGB CONC 33.3 g/dL (30-36); MEAN PLATELET VOLUME 8.8 FL (6.5-11.5); RED BLOOD COUNT 4.49 X10e (3.90-5.60); RED CELL DISTRIBUTION WIDTH 13.3 % (11.0-15.5); WHITE BLOOD COUNT 6.1 X10e3 (4.0-10.5)
[2016-11-15 02:58] LABS: INR 2.4; PROTHROMBIN TIME (PATIENT) 26.6 SECONDS (9.6-11.5)
[2016-11-15 03:01] LABS: BUN/CREATININE RATIO 16.25; CALCIUM SERUM 8.1 mg/dL (8.4-10.2); CREATININE SERUM 0.8 mg/dL (0.6-1.4); GLOM FILT RATE Estimated 89.3 mL/min (>60); POTASSIUM 3.8 mmol/L (3.5-5.1)
[2016-11-15] MEDS ORDERED: LIPITOR40 MG PO (14:13)
[2016-11-15] MEDS ORDERED: ASPIRIN81 MG PO (14:14)
[2016-11-15] MEDS ORDERED: B-121000 MC1 PO (14:15)
[2016-11-15] MEDS ORDERED: PREDNISONE PO ×2 (14:16→14:20)
[2016-11-15] MEDS ORDERED: COMBIVENT U/D3 M2 INH (14:17)
== END 2016-11-15 16:21 | DRG 64 ==
LOC: CED 23:18 → CEDOF 11-10 03:00 → C3A PCU 11-10 16:41
PROVIDERS: Emergency Medicine; Family Medicine; Internal Medicine; Internal Medicine Cardiovascular Disease; Physician Assistant Medical; Psychiatry & Neurology Neurology
PROC: B24BZZZ Ultrasonography of Heart with Aorta (ICD-10-PCS; 2016-11-11)
PROC: B24BZZ4 Ultrasonography of Heart with Aorta, Transesophageal (ICD-10-PCS; principal; 2016-11-13)
DX: I63.511 Cerebral infarction due to unspecified occlusion or stenosis of right middle cerebral artery (principal); J96.01 Acute respiratory failure with hypoxia; R13.10 Dysphagia, unspecified; G81.94 Hemiplegia, unspecified affecting left nondominant side; J44.1 Chronic obstructive pulmonary disease with (acute) exacerbation; R47.1 Dysarthria and anarthria; I10 Essential (primary) hypertension; F17.210 Nicotine dependence, cigarettes, uncomplicated; Z95.2 Presence of prosthetic heart valve; E53.8 Deficiency of other specified B group vitamins; E78.5 Hyperlipidemia, unspecified; F41.1 Generalized anxiety disorder; G89.4 Chronic pain syndrome; F10.21 Alcohol dependence, in remission; I25.10 Atherosclerotic heart disease of native coronary artery without angina pectoris; Z95.1 Presence of aortocoronary bypass graft; Z51.5 Encounter for palliative care; R41.0 Disorientation, unspecified; Z91.81 History of falling; R07.89 Other chest pain; F32.9 Major depressive disorder, single episode, unspecified; Z91.19 Patient's noncompliance with other medical treatment and regimen
CPT/HCPCS: 36415; 70450; 70496; 70498; 70551; 71010; 71020; 74230; 80048; 80061; 80076; 80202; 80307; 81003; 82140; 82308; 82553; 82607; 82947; 83036; 83605; 83880; 84484; 85025; 85027; 85610; 86140; 87040; 87077; 87086; 87186; 92507; 92523-GN; 92526; 92610; 92611; 93005; 93306; 93312; 94640; 94760; 97110; 97116; 97162; 97166; 97530; 97535; 99285; C9113; G0480; G8978-GP; G8979-GP; G8980-GP; G8987-GO; G8988-GO; G8996-GN; G8997-GN; J1815; J2250; J2920; J3010; J3370; J3420; Q9967